=== PATIENT | male | born 1975 | race African-American/Black ===

== ENCOUNTER 2023-07-06 09:10 | Emergency (ER) | payer BC, SELFPAY ==
[2023-07-06 09:24] VITALS: BP 129/72; PULSE 78; RESP 16; TEMP 36.2; O2SAT 99
--- NOTE | 2023-07-06 09:32 | ED.MALEGU ---
HPI - Male Genitourinary General Chief complaint: Urogenital-Male Stated complaint: STD Time Seen by Provider: 07/06/23 09:30 Source: patient Mode of arrival: ambulatory Limitations: no limitations History of Present Illness HPI Narrative: Mr. Krishna is a 48-year-old male patient presenting to the clinic today requesting STI testing. He denies any symptoms however he is been with some promiscuous women and is concerned about STD exposure. Last sexual encounter was March 14 and states he has with women only Review of Systems Review of Systems: Pertinent positives per HPI. Patient denies any fever, chills, rash, headache, visual changes, dizziness, cough, runny nose, sore throat, shortness of breath, chest pain, palpitations, nausea, vomiting, diarrhea, constipation, abdominal pain, or any urinary issues. PMFSH Comments At the time of my signature, I reviewed and agree with the nursing past medical, surgical, social, and family history. There is no relevant family history pertinent to the patient complaint. Exam Narrative: General: Well-developed, well nourished, in no apparent distress. Head: Normocephalic, atraumatic. Cardio: Regular rate and rhythm, s1 and s2 normal, no murmur appreciated. Resp: Clear to auscultation bilaterally, no rhonchi, rales, wheezing or rubs. Abdomen: Soft, pliable, bowel sounds present in all quadrants, non-tender to palpation, no organomegly, no CVAT tenderness. Course Course Emergency Course: Portions of this record may have been created with voice recognition software. Level of Care: Express Care Visit Vital Signs Vital signs: Vital Signs Temperature 36.2 C L 07/06/23 09:24 Pulse Rate 78 07/06/23 09:24 Respiratory Rate 16 07/06/23 09:24 Blood Pressure 129/72 07/06/23 09:24 Pulse Oximetry 99 07/06/23 09:24 Oxygen Delivery Room Air 07/06/23 09:24 Temperature 36.2 C L 07/06/23 09:24 Pulse Rate 78 07/06/23 09:24 Respiratory Rate 16 07/06/23 09:24 Blood Pressure 129/72 07/06/23 09:24 Pulse Oximetry 99 07/06/23 09:24 Oxygen Delivery Room Air 07/06/23 09:24 Vital signs reviewed MDM - Male Genitourinary MDM Narrative Medical decision making narrative: At the time of visit patient is resting comfortably on the exam table. Dirty urine was collected for STI testing. Patient notified that we will contact him regarding any positive results and recommend further treatment. Explained to the patient if he wants further blood testing for HSV, HPV, syphilis, or HIV he should go to the [facility] for free testing. He voiced understanding. Supportive measures were discussed with the patient he voiced understanding of the discharge instructions and agrees to treatment plan. Differential Diagnosis Differential diagnosis: Likely other (STI exposure, chlamydia, gonorrhea, Trichomonas) Discharge Plan Discharge Clinical Impression: Encounter for assessment of STD exposure Patient Disposition: Home, Self-Care Condition: Stable Instructions: Antibiotic Form, Sexually Transmitted Diseases (ED) Additional Instructions: We have tested you for STIs in the clinic today. Avoid any sexual activity- includes oral, anal, or vaginal intercourse until you get results back and have completed any additional recommended treatment regimens. We will contact you if testing is positive and make sure your treatment was appropriate for the type of STI. Follow-up with your PCP as needed Follow-up/Referrals: PHYSICIAN NOT ON STAFF,NONSTAFF [Primary Care Provider] - Time of Disposition: 09:33 Quality [facility] Nursing Documentation ED NIH nursing documentation: reviewed/agree
[2023-07-06 19:36] LABS: Trichomonas Vag PCR NOT DETECTED (NOT DETECTE)
[2023-07-06 19:58] LABS: Chlamydia trachomatis NOT DETECTED (NOT DETECTE); Neisseria gonorrhoeae PCR NOT DETECTED (NOT DETECTE)
== END 2023-07-06 09:42 | disposition home or self-care (01) ==
PROVIDERS: Emergency Provider Nurse Practitioner Family
DX: Z11.3 Encounter for screening for infections with a predominantly sexual mode of transmission (principal)
CPT/HCPCS: 87491; 87591; 87661; 99203; G0463

== ENCOUNTER 2025-06-23 12:17 | Emergency (ER) | payer BC, SELFPAY ==
[2025-06-23] VITALS (14 sets, daily range): BP systolic 102–110; BP diastolic 66–71; PULSE 59–76; RESP 11–16; TEMP 36.4; O2SAT 96–100
--- NOTE | ~2025-06-23 | XR_ITS ---
Examination: XR chest 1V portable Clinical History: cp, COUGH Comparison: Chest pain, cough Technique: Portable AP Findings: Heart size normal. Lungs clear. Hyperinflation. No acute bony abnormality. IMPRESSION: 1. No acute cardiopulmonary findings given portable technique. Reviewed, dictated and finalized at location R.
--- NOTE | 2025-06-23 12:21 | ECG_ITS ---
Test Date: 2025-06-23 12:27:57 Measurements Intervals [place] Rate: 73 P: 77 MT: 157 QRS: 57 QRSD: 96 T: 49 QT: 371 QTc: 411 Interpretive Statements SINUS RHYTHM POSSIBLE LEFT ATRIAL ENLARGEMENT [-0.1mV P-WAVE IN V1/V2] ABNORMAL ECG No previous ECG available for comparison Electronically Signed On 06-23-2025 12:55:38 CDT by Christian Bryant M.D.
[2025-06-23 12:40] LABS: Hematocrit 46.4 % (42.0-52.0); Hemoglobin 15.5 g/dL (14.0-18.0); Immature Granulocyte Percent A 0.1 % (0-0.5); Lymphocytes Absolute Auto 3.30 K/mm3 (0.9-3.2); Mean Corpuscular HGB Conc 33.4 g/dl (32-36); Mean Corpuscular Hemoglobin 29.5 pg (26-34); Mean Corpuscular Volume 88.4 fl (80-100); Nucleated Red Blood Cells Absolute Auto 0.000 K/mm3 (0.0-0.012); Nucleated Red Blood Cells Perc 0.0 % (0.0-0.2); Platelet Count Result 214 k/mm3 (150-375); Red Blood Count 5.25 M/mm3 (4.6-6.20); White Blood Count 8.8 K/mm3 (4.5-10.0)
[2025-06-23] MEDS: Please add drug allergy info to patient profile. 1 EACH XX (12:44)
[2025-06-23 12:51] LABS: INR 1.1; Prothrombin Time 14.1 Seconds (11.1-14.7)
[2025-06-23 12:52] LABS: Partial Thromboplastin Time 26.6 Seconds (22.3-36.8)
[2025-06-23 12:53] LABS: Alanine Aminotransferase 11 U/L (6-50); Albumin Level 4.5 g/dL (3.5-5.1); Alkaline Phosphatase 57 U/L (38-126); Anion Gap 6 mmol/L (4-12); Aspartate Amino Transferase 24 U/L (17-59); Bilirubin,Total 0.5 mg/dL (0.2-1.3); Blood Urea Nitrogen 12 mg/dL (9-20); Calcium 9.1 mg/dL (8.4-10.2); Carbon Dioxide 25 mmol/L (22-30); Chloride 107 mmol/L (98-107); Estimated CRCL calculation 101 ml/min; Estimated Glomerular Filt Rate > 60; Glucose 88 mg/dL (65-110); Lipase 158 U/L (23-300); Potassium 4.1 mmol/L (3.4-5.0); Sodium 138 mmol/L (137-145); Total Protein 7.6 g/dL (6.3-8.2)
[2025-06-23 13:03] LABS: Troponin I < 0.012 ng/mL (0.000-0.034)
--- OUTSIDE RECORDS SUMMARY | 2025-06-23 14:17 | XMS_ITS | Clinical Summary ---
Author Organization [facility] [employer] Address [address] [place] [address] Care Team Providers Care Form Drafter Name Role Phone Unavailable Primary Care Provider Unavailabl e Source Comments [facility] [employer],non-owned Affiliates and Associated Physician Practices is amultiple site organization consisting of ambulatory clinics and hospital sitesin [place], [place], [place] and [place]. This disclosure is being madepursuant to the Care Everywhere program and may not contain all information available regarding this patient. Last updated 18.[facility] [employer] Allergies No known active allergies Medications * Be aware that medications may not be up to date on this document. Alwaysverify current medications with the patient. LORazepam (ATIVAN) 1 MG tablet Take 1 mg by mouth once daily 01/08/2018 Active Multiple Vitamin (TAB-A-ECHO PO) Acti ve Iron-Vitamins (GERITOL COMPLETE PO) Take by mouth once daily Active OXcarbazepine (TRILEPTAL) 300 MG tablet Take 1 tablet by mouth 2 times daily 60 tablet 5 03/14/2018 Active Family History Medical History Relation Name Comments Cancer - Other Father Cancer - Other Mother Relation Name Status Comments Brother Alive Father Mother Sister Alive Social History Tobacco Use Types Packs/Day Years Used Date Smoking Tobacco: Every Day Smokeless Tobacco: Never Comments:vapor Alcohol Use Standard Drinks/Week Comments Yes 0 (1 standard drink = 0.6 oz pur e alcohol) Sex and Gender Information Value Date Recorded Sex Assigned at Not on file Legal Sex Male 5:48 PM CDT Gender Identity Not on file Sexual Orientation Not on file Last Filed Vital Signs Vital Sign Reading Time Taken Comments Blood Pressure 106/68 03/14/2018 11:38 AM CDT Pulse 95 03/14/2018 11:38 AM CDT Temperature 37.2 C (98.9 F) 01/08/2018 11:56 AM CDT Respiratory Rate 18 01/08/2018 11:56 AM CDT Oxygen Saturation 95% 03/14/2018 11:38 AM CDT Inhaled Oxygen Concentration - - Weight 72.6 kg (160 lb) 03/14/2018 11:38 AM CDT Height 190.5 cm (6' 3) 03/14/2018 11:38 AM CDT Body Mass Index 20 03/14/2018 11:38 AM CDT Plan of Treatment Health Maintenance Due Date Last Done Comments COLOGUARD (AGES 45-75) - COL ON CA SCREENING 1975 COLON MONITORING 1976 COLONOSCOPY - COLON CA SCREENING 1976 CT COLONOGRAPHY - COLON CA SCREENING 1975 Colorectal Cancer Screening 1975 FIT - COLON CA SCREENING 1976 FLEX SIG - COLON CA SCREENING 1976 LIPID TESTING 1976 HIV SCREENING 1991 HEPATITIS C SCREENING 05/29/1994 DTAP/TDAP/TD VACCINES (1 - Tdap) 1995 HEPATITIS B VACCINE (1 of 3 - 19+ 3-dose series) 1995 DEPRESSION SCREENING 10/09/2024 COVID-19 VACCINE (1 - 2023-2 5 season) 2025 INFLUENZA VACCINE (#1) 2025 01/08/2018 ZOSTER VACCINE (1 of 2) 2026 HIB VACCINE Aged Out No longer eligi ble based on patient's age to complete this topic HPV VACCINE Aged Out No longer eligi ble based on patient's age to complete this topic MENINGOCOCCAL (Group B) VACC INE SHARED DECISION-MAKING Aged Out No longer eligibl e based on patient's age to complete this topic MENINGOCOCCAL GROUPS A/C/Y/W VACCINE Aged Out No longer eligible b ased on patient's age to complete this topic Insurance ANTH * Guarantor: Herbie Krishna Account Type Relation to Patient Date of Phone Billing Address Personal/Family Self 1975 [address] [place] [address]
--- OUTSIDE RECORDS SUMMARY | 2025-06-23 14:17 | XMS_ITS | Clinical Summary ---
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[facility]) Resolved Problems Problem Noted Date Diagnosed Date Resolved Date Routine general medical exam ination at a health care facility 11/10/2020 11/16/2020 Immunizations Immunization Administration Dates Next Due Tdap (Generic) 11/10/2016 Social History Tobacco Use Types Packs/Day Years Used Date Smoking Tobacco: Every Day Smokeless Tobacco: Never Alcohol Use Standard Drinks/Week Comments Not Currently 0 (1 standard drink = 0.6 oz pur e alcohol) Sex and Gender Information Value Date Recorded Sex Assigned at Not on file 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 Gender Identity Not on file Sexual Orientation Not on file Occupation Industry Job Start Date Job End Date [employer] Not on file Not on file Not on file Last Filed Vital Signs Vital Sign Reading Time Taken Comments Blood Pressure 100/64 11/10/2020 10:58 AM LOOM STARTER Pulse - - Temperature - - Respiratory Rate - - Oxygen Saturation - - Inhaled Oxygen Concentration - - Weight 76.2 kg (168 lb) 11/10/2020 10:58 AM LOOM STARTER Height 188.6 cm (6' 2.25) 11/10/2020 10:58 AM Micheline KING Body Mass Index 21.42 11/10/2020 10:58 AM LOOM STARTER Plan of Treatment Health Maintenance Due Date Last Done Comments Colorectal Cancer Screening Colonoscopy (10 Years) 1976 Hepatitis C 1994 Hepatitis B Vaccines (1 of 3 - 19+ 3-dose series) 1995 Pneumococcal Vaccine: Pediat rics (0 to 5 Years) and At-Risk Patients (6 to 49 Years) (1 of 2 - PCV) 1995 Annual Physical 11/10/2021 11/10/2020 COVID-19 Vaccine (1 - 2023-2 5 season) 2025 DTaP, Tdap and Td Vaccines ( 2 - Td or Tdap) 11/10/2026 11/10/2016 Meningococcal B Vaccine Aged Out No l onger eligible based on patient's age to complete this topic Meningococcal Vaccine Aged Out No barrett magi eligible based on patient's age to complete this topic RSV Immunizations Under 20 Months Aged Out No longer eligible based on patient's age to complete this topic Insurance [facility] Care Teams Facing Baster Jumpbasting Relationship Specialty Start Date End Date Dillon Au MD [address] [id number] PCP - General FAMILY PRACTICE 10/15/20
--- OUTSIDE RECORDS SUMMARY | 2025-06-23 14:17 | XMS_ITS | Clinical Summary ---
Author Organization 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 Gender Identity Not on file Sexual Orientation Not on file Plan of Treatment Health Maintenance Due Date Last Done Comments Hepatitis C Virus (HCV) Screening 1975 Hepatitis B Immunization (1 of 3 - 19+ 3-dose series) 1995 Cologuard 2021 Colonoscopy 2021 Colorectal Cancer Screening 2021 Immunochemical Fecal Occult Blood 2021 SARS-COV-2 Immunization ( season) 2024 Influenza Immunization (#1) 2025 Respiratory Syncytial Virus (RSV) Immunization (Adult) (1 - 1-dose 75+ series) 2051 DTaP/Tdap/Td Immunization Discontinued 11/10/2016 TdaP Immunization Completed 11/10/2016 Human Papillomavirus (HPV) Immunization Aged Out No longer eligible b ased on patient's age to complete this topic Meningococcal Immunization (ACWY) Aged Out No longer eligible based on patient's age to complete this topic Pneumococcal Immunization Combined Aged Out No longer eligible based on patient's age to complete this topic Rotavirus Immunization Aged Out No lo nger eligible based on patient's age to complete this topic
--- NOTE | 2025-06-23 14:39 | ED.GENADULT ---
HPI - General Adult General Chief complaint: Chest Pain Stated complaint: Chest Pain Time Seen by Provider: 06/23/25 13:20 History of Present Illness HPI narrative: Herbie Krishna is a 50-year-old male who presents today with complaints of having left-sided chest pain that moves to his left arm that started 3 days ago. He states that the pain has been constant however at times it eases up some but it has never completely gone away. States that the pain was worse with coughing he is not on any daily medications, no past medical history he is a smoker for several years. Denies shortness of breath Related Data Allergies Allergy/AdvReac Type Severity Reaction Status Date / Time No Known Allergies Allergy Verified 06/23/25 12:24 Review of Systems Review of Systems: All systems reviewed & are unremarkable except as noted in HPI and below Exam Narrative: GENERAL: Well-appearing, well-nourished, and in no acute distress. HEAD: Normocephalic, atraumatic. EYES: PERRLA and EOMI. ENT: Nares clear, no rhinorrhea or epistaxis. Mucous membranes moist. Oropharynx without tonsillar hypertrophy exudate or other lesions. NECK: Supple. No adenopathy or masses. No carotid bruits or JVD CHEST: Clear to auscultation. No respiratory distress. No wheezes rales or rhonchi HEART: Regular rate and rhythm. No murmur heard. Normal peripheral pulses. ABDOMEN: Soft, nontender, nondistended, normal active bowel sounds. EXTREMITIES: Normal range of motion. No edema. SKIN: Warm, dry, no rash. NEURO: No focal deficits. Alert and oriented x3. PSYCH: Normal mood and affect. Course Vital Signs Vital signs: Vital Signs Temperature 36.4 C 06/23/25 12:21 Pulse Rate 73 06/23/25 12:21 Respiratory Rate 16 06/23/25 12:21 Blood Pressure 109/71 06/23/25 12:21 Pulse Oximetry 100 06/23/25 12:21 Temperature 36.4 C 06/23/25 12:21 Pulse Rate 63 06/23/25 14:46 Respiratory Rate 13 06/23/25 14:46 Blood Pressure 110/68 06/23/25 14:46 Pulse Oximetry 100 06/23/25 14:46 Oxygen Delivery Room Air 06/23/25 12:37 Medical Decision Making [facility] Narrative Medical decision making narrative: 50-year-old male who presents today with complaints of having chest pain at on the left side pinpointed area that moves to his left arm. While I was examining him he states that the pain was worse with coughing and when he is but no other movements make the pain worse. He states he did take ibuprofen over the weekend it seemed to help the pain some but the pain never completely went away. He denies any shortness of breath denies any past medical history other than being a smoker for several years. Denies any new or worsening cough denies fevers chills. CBC is unremarkable, CMP unremarkable 1st troponin is negative lipase is negative chest x-ray is clear perc score is 0 heart score is 2 will obtain provide him with a dose of ketorolac IV and labs check another troponin to be sure. Second trop 2nd troponin is negative and patient re-evaluated, and he states that he no longer has any pain after the ketorolac. He is feeling much better I updated him on all of his labs and imaging and plan for discharge with PCP follow-up. He does not have a primary care doctor will provide him with with Dr. Membreno referral for follow up. Patient provided with strict return precautions and follow he feels comfortable with this plan denies needing further at this time. Medical Records Medical records reviewed: Yes I reviewed the external patient's medical records. Vital Signs Vital Signs: Vital Signs Temperature 36.4 C 06/23/25 12:21 Pulse Rate 73 06/23/25 12:21 Respiratory Rate 16 06/23/25 12:21 Blood Pressure 109/71 06/23/25 12:21 Pulse Oximetry 100 06/23/25 12:21 Temperature 36.4 C 06/23/25 12:21 Pulse Rate 63 06/23/25 14:46 Respiratory Rate 13 06/23/25 14:46 Blood Pressure 110/68 06/23/25 14:46 Pulse Oximetry 100 06/23/25 14:46 Oxygen Delivery Room Air 06/23/25 12:37 Vitals reviewed by me Lab Data Lab results reviewed: Yes I reviewed the patient's lab results. 06/23/25 12:34 06/23/25 12:34 Labs: Lab Results 06/23/25 06/23/25 Range/Units 12:34 15:30 WBC 8.8 (4.5-10.0) K/mm3 RBC 5.25 (4.6-6.20) M/mm3 Hgb 15.5 (14.0-18.0) g/dL Hct 46.4 (42.0-52.0) % MCV 88.4 (80-100) fl MCH 29.5 (26-34) pg MCHC 33.4 (32-36) g/dl RDW 13.4 (11.5-14.5) % Plt Count 214 (150-375) k/mm3 MPV 11.3 H (7.4-10.4) fl Immature Gran % (Auto) 0.1 (0-0.5) % Neut % (Auto) 55.9 (45.5-73.1) % Lymph % (Auto) 37.4 (18.3-44.2) % [place] % (Auto) 4.8 (2.6-8.5) % Eos % (Auto) 1.1 (0-4.4) % Baso % (Auto) 0.7 (0.2-1.2) % Lymph # (Auto) 3.30 H (0.9-3.2) K/mm3 [place] # (Auto) 0.4 (0.1-0.6) K/mm3 Eos # (Auto) 0.1 (0-0.3) K/mm3 Baso # (Auto) 0.1 (0.0-0.1) K/mm3 Abs Immat Gran (auto) 0.01 (0.00-0.031) K/mm3 Absolute Neuts (auto) 4.9 (1.3-6.7) K/mm3 Absolute Nucleated RBC 0.000 (0.0-0.012) K/mm3 Nucleated RBC % 0.0 (0.0-0.2) % PT 14.1 (11.1-14.7) Seconds INR 1.1 APTT 26.6 (22.3-36.8) Seconds Sodium 138 (137-145) mmol/L Potassium 4.1 (3.4-5.0) mmol/L Chloride 107 (98-107) mmol/L Carbon Dioxide 25 (22-30) mmol/L Anion Gap 6 (4-12) mmol/L BUN 12 (9-20) mg/dL Creatinine 0.84 (0.7-1.3) mg/dL Estim Creat Clear Calc 101 ml/min Estimated GFR > 60 (59 - ) Glucose 88 (65-110) mg/dL Calcium 9.1 (8.4-10.2) mg/dL Total Bilirubin 0.5 (0.2-1.3) mg/dL AST 24 (17-59) U/L ALT 11 (6-50) U/L Alkaline Phosphatase 57 (38-126) U/L Troponin I < 0.012 < 0.012 (0.000-0.034) ng/mL Total Protein 7.6 (6.3-8.2) g/dL Albumin 4.5 (3.5-5.1) g/dL Lipase 158 (23-300) U/L Imaging Data Radiologist's impression: Impressions Chest X-Ray 06/23/25 12:44 IMPRESSION: 1. No acute cardiopulmonary findings given portable technique. Discharge Plan Discharge Clinical Impression: Atypical chest pain, Costalchondritis Patient Disposition: Home Condition: Stable Instructions: Antibiotic Form Additional Instructions: Continue Tylenol and ibuprofen for your pain as needed Please establish care or follow-up with her primary care doctor. If you should develop any new or worsening symptoms please return to the ER Patient Language: Kinyarwanda Follow-up/Referrals: Napoleon Membreno MD [Physician, Family Practice] - 1 Week Stand Alone Forms: Work/School Release IP Time of Disposition: 16:50 Quality HEART score for chest pain patients History: slightly suspicious ECG: normal Age: > 45 and < 65 years Risk factors: 1 or 2 risk factors Troponin: < or = to 1x normal limit Heart score: 2
[2025-06-23] MEDS: KETOROLAC 30 MG/ML VIAL (*BKC) IV PUSH (14:50)
--- NOTE | 2025-06-23 15:20 | ECG_ITS ---
Test Date: 2025-06-23 15:24:52 Measurements Intervals [place] Rate: 65 P: 83 UT: 164 QRS: 64 QRSD: 94 T: 56 QT: 386 QTc: 404 Interpretive Statements SINUS RHYTHM POSSIBLE LEFT ATRIAL ENLARGEMENT [-0.1mV P WAVE IN V1/V2] ST-ELEVATION, CONSIDER EARLY REPOLARIZATION VERSUS INJURY PATTERN ABNORMAL ECG Compared to ECG 06/23/2025 12:27:57 Early repolarization now present Electronically Signed On 06-24-2025 08:04:22 CDT by Christian Bryant M.D.
[2025-06-23 15:57] LABS: Troponin I < 0.012 ng/mL (0.000-0.034)
--- OUTSIDE RECORDS SUMMARY | 2025-06-23 16:13 | XMS_ITS | Clinical Summary ---
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 Gender Identity Not on file Sexual Orientation Not on file Occupation Industry Job Start Date Job End Date [employer] Not on file Not on file Not on file Last Filed Vital Signs Vital Sign Reading Time Taken Comments Blood Pressure 100/64 11/10/2020 10:58 AM DIRECTOR OF CATERING Pulse - - Temperature - - Respiratory Rate - - Oxygen Saturation - - Inhaled Oxygen Concentration - - Weight 76.2 kg (168 lb) 11/10/2020 10:58 AM DIRECTOR OF CATERING Height 188.6 cm (6' 2.25) 11/10/2020 10:58 AM Micheline KING Body Mass Index 21.42 11/10/2020 10:58 AM DIRECTOR OF CATERING Plan of Treatment Health Maintenance Due Date [...] patient's age to complete this topic Insurance [facility] Care Teams Pm Head Cook Relationship Specialty Start Date End Date Dillon Au MD [address] [phone] PCP - General FAMILY PRACTICE 10/15/20
--- OUTSIDE RECORDS SUMMARY | 2025-06-23 16:13 | XMS_ITS | Clinical Summary ---
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
--- OUTSIDE RECORDS SUMMARY | 2025-06-23 16:13 | XMS_ITS | Clinical Summary ---
Author Organization [facility] [employer] Address [address] [place] [address] Care Team Providers Care Survey Technologist Name Role Phone Unavailable Primary Care Provider Unavailabl e Source Comments [facility] [employer],non-owned Affiliates and Associated Physician Practices is amultiple site organization consisting of ambulatory clinics and hospital sitesin [place], [place], [place] and [place]. This disclosure is being madepursuant to the Care Everywhere program and may not contain all information available regarding this patient. Last updated 18.[facility] [employer] Allergies No known active allergies Medications * [...]
== END 2025-06-23 17:08 | disposition home or self-care (01) ==
PROVIDERS: Emergency Medicine; Emergency Provider Nurse Practitioner Family
DX: M94.0 Chondrocostal junction syndrome [Tietze] (principal)
CPT/HCPCS: 36415; 71045; 80053; 83690; 84484; 85025; 85610; 85730; 93005; 96374; 99284; J1885